=== PATIENT | male | born 1950 | race Caucasian/White ===

== ENCOUNTER 2019-07-08 15:19 | Emergency (ER) | payer MEDICARE, OTHER ==
[2019-07-08] MEDS ORDERED: Tetan/Diph/Pertus SYR(Tdap)* 0.5 ML SYR(BOOSTRIX) use SYR contains LATEX IM ONE (15:54)
[2019-07-08] MEDS ORDERED: Lidocaine 1% MPF ** 5 ML VIAL INJ ONE (15:55)
--- NOTE | 2019-07-08 15:55 | ED ---
Bite Injury/Animal - HPI Summary HPI Summary: Patient is a 69-year-old male who presents emergency department for dog bite to his right arm that occurred just prior to arrival. Patient is unaware of his last tetanus immunization. Patient states he was petting his dog while eating and dog bit right forearm. Dog's immunizations are up to date. No significant past medical hx. Sxs are mild in severity. No current modifying factors. - History of Current Complaint Chief Complaint: EDAnimalBite Stated Complaint: DOG BITE ON RT ARM PER PT Time Seen by Provider: 07/08/19 15:40 Hx Obtained From: Patient Pain Intensity: 1 - Allergies/Home Medications Allergies/Adverse Reactions: Allergies Allergy/AdvReac Type Severity Reaction Status Date / Time No Known Allergies Allergy Verified 07/08/19 15:24 PMH/Surg Hx/FS Hx/Imm Hx Previously Healthy: Yes Endocrine/Hematology History: Denies: Hx Diabetes, Hx Thyroid Disease Cardiovascular History: Reports: Hx Hypercholesterolemia Denies: Hx Hypertension, Hx Peripheral Vascular Disease Musculoskeletal History: Denies: Hx Arthritis, Hx Osteoporosis Sensory History: Denies: Hx Cataracts, Hx Contacts or Glasses, Hx Glaucoma Opthamlomology History: Denies: Hx Cataracts, Hx Contacts or Glasses, Hx Glaucoma Neurological History: Denies: Hx Headaches, Hx Seizures, Hx Transient Ischemic Attacks (TIA) Psychiatric History: Denies: Hx Anxiety, Hx Depression - Surgical History Surgery Procedure, Year, and Place: T and A 1955. Vasectomy 2000 Infectious Disease History: No Infectious Disease History: Denies: Traveled Outside the [place] in Last 30 Days - Family History Known Family History: Positive: Non-Contributory - Social History Occupation: Employed Part-time Lives: With Family Hx Substance Use: No Hx Tobacco Use: No Review of Systems Positive: Other - Laceration right arm Neurological: Negative Negative: Weakness, Paresthesia, Numbness All Other Systems Reviewed And Are Negative: Yes Physical Exam Triage Information Reviewed: Yes Vital Signs On Initial Exam: Initial Vitals Temp Pulse Resp BP Pulse Ox 99.2 F 95 16 161/75 96 07/08/19 15:21 07/08/19 15:21 07/08/19 15:21 07/08/19 15:21 07/08/19 15:21 Vital Signs Reviewed: Yes Appearance: Positive: Well-Appearing - Pt. sitting on bed in NAD. Pleasant. Skin: Positive: Warm, Dry Head/Face: Positive: Normal Head/Face Inspection Eyes: Positive: Normal, EOMI Neck: Positive: Supple Musculoskeletal: Positive: Other - 2.5cm L shaped laceration noted to right forarm on the dorsal aspect. Full ROM of forearm, wrist and hand. Mild tenderness and edema surrounding wound. Neurological: Positive: Normal, CN Intact II-III Psychiatric: Positive: Affect/Mood Appropriate Procedures - Sedation Patient Received Moderate/Deep Sedation with Procedure: No - Laceration/Wound Repair 1 Location: upper extremity - Right forearm Description: Irregular Anesthesia: Local, 1.0%, Lido Length, Depth and Shape: 2.5cm L shaped. Betadine Prep?: No - hibiclens Irrigated w/ Saline (ccs): 100 Laceration/Wound Explored: clean Closure: Single Layer Suture Type: Nylon Number of Sutures: 4 Layer Closure?: No Sterile Dressing Applied?: Yes Diagnostics - Vital Signs Vital Signs Temp Pulse Resp BP Pulse Ox 07/08/19 15:21 99.2 F 95 16 161/75 96 - Laboratory Lab Statement: Any lab studies that have been ordered have been reviewed, and results considered in the medical decision making process. Bite Injury Course/Dx - Course Course Of Treatment: Patient with simple laceration to right arm from his pet dog. Tetanus was updated. Wound was extensively irrigated, cleaned and closed as noted above. We'll place prophylactically on Augmentin. Suture removal in 7 -10 days. Keep wound clean and dry. To return to the ER for redness, swelling or drainage. Ice and elevate intermittently. Patient understands and agrees with plan. - Diagnoses Differential Diagnosis/HQI/PQRI: Positive: Crush Injury, Fracture, Laceration, Puncture Provider Diagnosis: Dog bite, Laceration Discharge ED - Sign-Out/Discharge Documenting (check all that apply): Patient Departure - Discharge Plan Condition: Improved Disposition: HOME Prescriptions: Amoxicillin/Clavulanate TAB* [Augmentin TAB 875*] 875 mg PO BID #20 tab Patient Education Materials: Animal Bite (ED), Care For Your Stitches (ED) Referrals: Shauna Barone MD [Primary Care Provider] - Additional Instructions: Suture removal in 7 days Keep wound clean and dry Antibiotic as directed Ice and elevate intermittently Return to ER for redness, swelling, drainage or if concerned - Billing Disposition and Condition Condition: IMPROVED Disposition: Home
[2019-07-08 16:41] VITALS: BP 127/56
== END 2019-07-08 16:40 | disposition home or self-care (01) ==
LOC: ED 15:19
DX: S51.811A Laceration without foreign body of right forearm, initial encounter (principal); W54.0XXA Bitten by dog, initial encounter; Y93.89 Activity, other specified; Y92.009 Unspecified place in unspecified non-institutional (private) residence as the place of occurrence of the external cause; Z23 Encounter for immunization; E78.00 Pure hypercholesterolemia, unspecified
CPT/HCPCS: 12001; 90471; 90715; 99282